=== PATIENT | female | born 1985 | race Caucasian/White ===

== ENCOUNTER 2019-03-28 21:15 | Emergency (ER) | payer OTHER ==
[~2019-03-28] VITALS: Ht 160 cm; Wt 53.0 kg
[2019-03-28] MEDS ORDERED: EMTRICITABINE/TENOFOVIR 200-300 MG TABLET PO ONE (22:00)
[2019-03-28] MEDS ORDERED: RALTEGRAVIR 400 MG TABLET PO ONE (22:00)
[2019-03-28 23:16] VITALS: BP 118/72
[2019-03-30 09:02] LABS: HIV 1-2 SCREEN 4TH GEN W/RFLX Non Reactive (Non Reactive)
== END 2019-03-28 23:30 | disposition home or self-care (01) ==
LOC: EMS 21:17
DX: S61.234A Puncture wound without foreign body of right ring finger without damage to nail, initial encounter (principal); W46.0XXA Contact with hypodermic needle, initial encounter; Y93.89 Activity, other specified; Y92.69 Other specified industrial and construction area as the place of occurrence of the external cause; Y99.0 Civilian activity done for income or pay
CPT/HCPCS: 84460; 86706; 86803; 87340; 87389

== ENCOUNTER 2019-05-01 17:12 | Emergency (ER) | payer OTHER ==
[~2019-05-01] VITALS: Ht 160 cm; Wt 55.5 kg
[2019-05-01] MEDS ORDERED: LIDOCAINE 5% TRANSDERMAL PATCH TD ONE (17:45)
[2019-05-01] MEDS ORDERED: ACETAMINOPHEN 500 MG TABLET PO ONE (17:45)
[2019-05-01] MEDS ORDERED: IBUPROFEN 400 MG TABLET PO ONE (17:45)
[2019-05-01 18:27] VITALS: BP 122/70
== END 2019-05-01 18:28 | disposition home or self-care (01) ==
LOC: EMS 17:14
DX: M25.562 Pain in left knee (principal); Y35.891A Legal intervention involving other specified means, law enforcement official injured, initial encounter; Y93.89 Activity, other specified; Y92.488 Other paved roadways as the place of occurrence of the external cause; Y99.0 Civilian activity done for income or pay

== ENCOUNTER 2021-02-21 01:21 | Emergency (ER) | payer OTHER ==
[~2021-02-21] VITALS: Ht 157.5 cm; Wt 61.4 kg
[2021-02-21 01:29] VITALS: BP 120/54
== END 2021-02-21 02:56 | disposition home or self-care (01) ==
LOC: EMS 01:21
DX: Z20.7 Contact with and (suspected) exposure to pediculosis, acariasis and other infestations (principal)
CPT/HCPCS: 99282; Z7502